=== PATIENT | male | born 1955 | race Caucasian/White ===

== ENCOUNTER 2017-05-04 11:52 | Emergency (ER) | payer MEDICARE, MEDICAID | END 2017-05-04 14:43 | disposition home or self-care (01) | LOC: M ED 11:52 | DX: J20.9 Acute bronchitis, unspecified (principal); F17.210 Nicotine dependence, cigarettes, uncomplicated; Z90.5 Acquired absence of kidney; Z88.0 Allergy status to penicillin | CPT/HCPCS: 99283 ==

== ENCOUNTER → 2019-12-21 | Outpatient (REF) | payer MEDICARE, MEDICAID ==
[~2019-12-21] MED LIST: ZITHTAB PO
[2019-12-21 13:13] LABS: BASO % 0.4 % (0.0-1.0); EOS % 0.4 % (0.0-3.0); HEMATOCRIT 40.3 % (42.0-52.0); LYMPH # 1.1 10^3/uL (1.5-5.0); MEAN CORPUSCULAR HEMOGLOBIN 36.4 pg (27.0-33.0); MEAN CORPUSCULAR HGB CONC 32.3 g/dl (32.0-36.5); MEAN CORPUSCULAR VOLUME 112.9 fl (80.0-96.0); MONO # 0.7 10^3/uL (0.0-0.8); NEUTROPHILS # 4.9 10^3/uL (1.5-8.5); NEUTROPHILS % 72.9 % (36.0-66.0); PLATELET COUNT, AUTOMATED 222 10^3/uL (150-450); RED BLOOD COUNT 3.57 10^6/uL (4.30-6.10); WHITE BLOOD COUNT 6.7 10^3/uL (4.0-10.0)
[2019-12-21 13:25] LABS: ALT/SGPT 31 U/L (12-78); BILIRUBIN,TOTAL 0.9 MG/DL (0.2-1.0); BLOOD UREA NITROGEN 9 MG/DL (7-18); CALCIUM LEVEL 9.2 MG/DL (8.8-10.2); CARBON DIOXIDE LEVEL 29 MEQ/L (21-32); CHLORIDE LEVEL 104 MEQ/L (98-107); CHOLESTEROL LEVEL 175 MG/DL (<200); CHOLESTEROL RISK RATIO 1.767 (<5); CREATININE FOR GFR 0.77 MG/DL (0.70-1.30); GLOMERULAR FILTRATION RATE > 60.0 (>49); GLUCOSE, FASTING 88 MG/DL (70-100); HDL CHOLESTEROL 99 MG/DL (>40); IRON (FE) 26 UG/DL (65-175); LDL CHOLESTEROL 64 MG/DL (<100); NON-HDL-C 76 MG/DL; POTASSIUM SERUM 4.4 MEQ/L (3.5-5.1); SODIUM LEVEL 136 MEQ/L (136-145); TOTAL PROTEIN 7.4 GM/DL (6.4-8.2); TRIGLYCERIDES LEVEL 58 MG/DL (<150)
== END ==
LOC: M LAB REF 12:46
PROVIDERS: ATTEND Physician Assistant
DX: R53.83 Other fatigue (principal); R63.4 Abnormal weight loss; Z79.899 Other long term (current) drug therapy

== ENCOUNTER → 2020-02-17 | Outpatient (REF) | payer MEDICARE, MEDICAID ==
[2020-02-17 13:50] LABS: BASO % 0.6 % (0.0-1.0); EOS # 0.1 10^3/uL (0.0-0.5); EOS % 1.4 % (0.0-3.0); HEMATOCRIT 38.2 % (42.0-52.0); HEMOGLOBIN 12.2 g/dl (13.5-17.5); LYMPH # 1.4 10^3/uL (1.5-5.0); LYMPH % 21.9 % (24.0-44.0); MEAN CORPUSCULAR HEMOGLOBIN 35.9 pg (27.0-33.0); MEAN CORPUSCULAR HGB CONC 31.9 g/dl (32.0-36.5); MEAN CORPUSCULAR VOLUME 112.4 fl (80.0-96.0); MONO # 0.9 10^3/uL (0.0-0.8); MONO % 14.3 % (0.0-5.0); NEUTROPHILS # 3.9 10^3/uL (1.5-8.5); NEUTROPHILS % 61.3 % (36.0-66.0); PLATELET COUNT, AUTOMATED 220 10^3/uL (150-450); WHITE BLOOD COUNT 6.3 10^3/uL (4.0-10.0)
[2020-02-17 14:20] LABS: PERCENT SATURATION 21.7 % (19.7-50.0)
[2020-02-17 14:21] LABS: FOLATE 18.9 NG/ML
== END ==
LOC: M LAB REF 12:25
PROVIDERS: ATTEND Physician Assistant
DX: D64.9 Anemia, unspecified (principal)

== ENCOUNTER 2023-04-07 09:10 | Emergency (ER) | payer MEDICARE, MEDICAID ==
[~2023-04-07] VITALS: Ht 172.7 cm; Wt 50.0 kg
[2023-04-07 09:11] VITALS: BP 133/80; TEMP 96; O2SAT 98
[2023-04-07] MEDS ORDERED: FLON27.5 NARES (11:39)
[2023-04-07] MEDS ORDERED: PSEU-52 PO (11:39)
== END 2023-04-07 11:45 | disposition home or self-care (01) ==
LOC: M ED 09:10
DX: J09.X2 Influenza due to identified novel influenza A virus with other respiratory manifestations (principal); B34.8 Other viral infections of unspecified site; B34.1 Enterovirus infection, unspecified; Z79.899 Other long term (current) drug therapy

== ENCOUNTER → 2024-04-12 | Outpatient (CLI) | payer MEDICARE, MEDICAID ==
[~2024-04-12] MED LIST changes: +FLON27.5 NARES; +PSEU-52 PO
== END ==
LOC: M LAB 10:35 → M RAD 10:35
PROVIDERS: ATTEND Nurse Practitioner Adult Health
DX: Z00.8 Encounter for other general examination (principal); F17.211 Nicotine dependence, cigarettes, in remission; M79.671 Pain in right foot; J44.9 Chronic obstructive pulmonary disease, unspecified

== ENCOUNTER 2024-05-17 07:41 | Emergency (ER) | payer MEDICARE, MEDICAID ==
[~2024-05-17] VITALS: Ht 172.7 cm; Wt 55.5 kg
[2024-05-17 08:40] LABS: BASO % 0.1 % (0.0-1.0); EOS % 0.2 % (0.0-3.0); HEMATOCRIT 42.5 % (42.0-52.0); HEMOGLOBIN 13.8 g/dl (13.5-17.5); LYMPH # 0.7 10^3/uL (1.5-5.0); LYMPH % 6.8 % (24.0-44.0); MEAN CORPUSCULAR HEMOGLOBIN 35.7 pg (27.0-33.0); MEAN CORPUSCULAR HGB CONC 32.5 g/dl (32.0-36.5); MEAN CORPUSCULAR VOLUME 109.8 fl (80.0-96.0); MONO # 1.3 10^3/uL (0.0-0.8); NEUTROPHILS # 8.6 10^3/uL (1.5-8.5); NEUTROPHILS % 80.5 % (36.0-66.0); PLATELET COUNT, AUTOMATED 155 10^3/uL (150-450); RED BLOOD COUNT 3.87 10^6/uL (4.30-6.10); WHITE BLOOD COUNT 10.7 10^3/uL (4.0-10.0)
[2024-05-17 08:48] LABS: ERYTHROCYTE SEDIMENTATION RATE 16 mm/hr (0-20)
[2024-05-17 09:16] LABS: URIC ACID 5.7 MG/DL (3.7-9.2)
[2024-05-17 09:19] LABS: ALBUMIN 4.4 G/DL (3.2-5.2); ALKALINE PHOSPHATASE 54 U/L (40-129); ALT/SGPT 19 U/L (7.0-40); AST/SGOT 23 U/L (<34); BILIRUBIN,TOTAL 1.5 MG/DL (0.3-1.2); BLOOD UREA NITROGEN 12 MG/DL (9-23); C REACTIVE PROTEIN QUANTITATIV < 0.50 MG/DL (<1.0); CALCIUM LEVEL 9.6 MG/DL (8.3-10.6); CARBON DIOXIDE LEVEL 27 MMOL/L (20-31); CHLORIDE LEVEL 103 MMOL/L (98-107); CREATININE FOR GFR 0.66 MG/DL (0.70-1.30); GLOMERULAR FILTRATION RATE > 60.0 (>49); GLUCOSE, FASTING 105 MG/DL (74-106); POTASSIUM SERUM 4.2 MMOL/L (3.5-5.1); SODIUM LEVEL 138 MMOL/L (136-145); TOTAL PROTEIN 7.7 G/DL (5.7-8.2)
[2024-05-17] MEDS ORDERED: KETOROLAC 30 MG/ML 1ML VIAL IV ONE (09:50)
[2024-05-17] MEDS: KETOROLAC 30 MG/ML 1ML VIAL IV ONE (11:09)
[2024-05-17] MEDS ORDERED: INDO50CA91 PO (11:14)
[2024-05-17 11:44] VITALS: BP 158/83; TEMP 97.9; O2SAT 100
== END 2024-05-17 11:46 | disposition home or self-care (01) ==
LOC: M ED 07:41
DX: M10.062 Idiopathic gout, left knee (principal); Z79.899 Other long term (current) drug therapy; Z88.0 Allergy status to penicillin
CPT/HCPCS: 73564; 80053; 83605; 84550; 85025; 85652; 86140; 96374; 99284; J1885

== ENCOUNTER 2024-06-03 08:38 | Inpatient (IN) | payer MEDICARE, MEDICAID ==
[~2024-06-03] VITALS: Ht 172.7 cm; Wt 51.4 kg
[~2024-06-03 08:38] MED LIST changes: +INDO50CA91 PO
[2024-06-03] MEDS: KETOROLAC 30 MG/ML 1ML VIAL IV ONE (11:43)
[2024-06-03 11:49] LABS: BASO % 0.3 % (0.0-1.0); EOS # 0.1 10^3/uL (0.0-0.5); EOS % 0.6 % (0.0-3.0); HEMATOCRIT 42.4 % (42.0-52.0); HEMOGLOBIN 13.4 g/dl (13.5-17.5); LYMPH # 1.3 10^3/uL (1.5-5.0); LYMPH % 10.3 % (24.0-44.0); MEAN CORPUSCULAR HEMOGLOBIN 34.2 pg (27.0-33.0); MEAN CORPUSCULAR HGB CONC 31.6 g/dl (32.0-36.5); MEAN CORPUSCULAR VOLUME 108.2 fl (80.0-96.0); MONO # 1.4 10^3/uL (0.0-0.8); NEUTROPHILS # 9.8 10^3/uL (1.5-8.5); NEUTROPHILS % 77.2 % (36.0-66.0); PLATELET COUNT, AUTOMATED 405 10^3/uL (150-450); RED BLOOD COUNT 3.92 10^6/uL (4.30-6.10); WHITE BLOOD COUNT 12.7 10^3/uL (4.0-10.0)
[2024-06-03 11:52] LABS: APPEARANCE, URINE CLEAR (CLEAR); BACTERIA, URINE AUTO NEGATIVE (NEGATIVE); BILIRUBIN, URINE AUTO NEGATIVE (NEGATIVE); BLOOD, URINE BLOOD NEGATIVE (NEGATIVE); COLOR, URINE YELLOW (YELLOW); GLUCOSE, URINE (UA) AUTO NEGATIVE (NEGATIVE); KETONE, URINE AUTO NEGATIVE (NEGATIVE); LEUKOCYTE ESTERASE, URINE AUTO NEGATIVE (NEGATIVE); MUCUS, URINE SMALL (NEGATIVE); NITRITE, URINE AUTO NEGATIVE (NEGATIVE); PROTEIN, URINE AUTO NEGATIVE (NEGATIVE); RBC, URINE AUTO 1 /HPF (0-3); SPECIFIC GRAVITY URINE AUTO 1.012 (1.002-1.035); SQUAMOUS EPITHELIAL CELL UR AU 0 /HPF (0-6); WBC, URINE AUTO 1 /HPF (0-3)
[2024-06-03 11:54] LABS: ERYTHROCYTE SEDIMENTATION RATE 87 mm/hr (0-20)
[2024-06-03 12:15] LABS: URIC ACID 4.4 MG/DL (3.7-9.2)
[2024-06-03 12:19] LABS: ALKALINE PHOSPHATASE 70 U/L (40-129); ALT/SGPT 24 U/L (7.0-40); AST/SGOT 19 U/L (<34); BILIRUBIN,DIRECT 0.3 MG/DL (<0.4); BILIRUBIN,TOTAL 1.1 MG/DL (0.3-1.2); BLOOD UREA NITROGEN 18 MG/DL (9-23); C REACTIVE PROTEIN QUANTITATIV 2.53 MG/DL (<1.0); CALCIUM LEVEL 9.7 MG/DL (8.3-10.6); CARBON DIOXIDE LEVEL 26 MMOL/L (20-31); CHLORIDE LEVEL 103 MMOL/L (98-107); GLOMERULAR FILTRATION RATE > 60.0 (>49); GLUCOSE, FASTING 94 MG/DL (74-106); POTASSIUM SERUM 4.6 MMOL/L (3.5-5.1); SODIUM LEVEL 138 MMOL/L (136-145); TOTAL PROTEIN 8.4 G/DL (5.7-8.2)
[2024-06-03 12:27] LABS: PROCALCITONIN 0.17 ng/ml
[2024-06-03 12:28] LABS: PARTIAL THROMBOPLASTIN TIME 30.2 SECONDS (24.8-34.2); PROTHROMBIN TIME 13.5 SECONDS (12.5-14.5)
[2024-06-03] MEDS ORDERED: GENTAMICIN 100 MG in D5W 50 ML IV SCH (13:15)
[2024-06-03] MEDS ORDERED: CLIN150C17 PO (13:56)
[2024-06-03] MEDS ORDERED: HOME MED LIST COMPLETE! XX SCH (14:00)
[2024-06-03] MEDS: ceFAZolin SODIUM 2 GM in DEXTROSE 5% (D5W) ADV/MINI-BAG 50 ML IV SCH (15:41)
[2024-06-03] MEDS ORDERED: PERCOCET 5MG/325MG TAB PO PRN (16:25)
[2024-06-03] MEDS: KETOROLAC 30 MG/ML 1ML VIAL IV SCH (17:45)
[2024-06-03] MEDS: ACETAMINOPHEN 500 MG TAB PO SCH (17:45)
[2024-06-03] MEDS: VANCOMYCIN HCL 1,250 MG, VIAL MATE ADAPTER 1 EACH in NS 250 ML IV ONE (20:15)
[2024-06-03 22:00] VITALS: BP 168/93; TEMP 97.5; O2SAT 97
[2024-06-04] MEDS: VANCOMYCIN HCL 1,000 MG, VIAL MATE ADAPTER 1 EACH in NS 250 ML IV SCH (04:26)
[2024-06-04 04:29] VITALS: BP 124/77; TEMP 97.5; O2SAT 98
[2024-06-04 06:55] LABS: BASO % 0.5 % (0.0-1.0); EOS # 0.1 10^3/uL (0.0-0.5); EOS % 1.6 % (0.0-3.0); HEMATOCRIT 36.4 % (42.0-52.0); HEMOGLOBIN 11.5 g/dl (13.5-17.5); LYMPH # 0.9 10^3/uL (1.5-5.0); LYMPH % 11.4 % (24.0-44.0); MEAN CORPUSCULAR HEMOGLOBIN 33.9 pg (27.0-33.0); MEAN CORPUSCULAR HGB CONC 31.6 g/dl (32.0-36.5); MEAN CORPUSCULAR VOLUME 107.4 fl (80.0-96.0); NEUTROPHILS % 74.1 % (36.0-66.0); PLATELET COUNT, AUTOMATED 366 10^3/uL (150-450); RED BLOOD COUNT 3.39 10^6/uL (4.30-6.10); WHITE BLOOD COUNT 8.1 10^3/uL (4.0-10.0)
[2024-06-04 07:17] LABS: C REACTIVE PROTEIN QUANTITATIV 1.92 MG/DL (<1.0)
[2024-06-04 07:21] LABS: BLOOD UREA NITROGEN 22 MG/DL (9-23); CALCIUM LEVEL 8.6 MG/DL (8.3-10.6); CARBON DIOXIDE LEVEL 28 MMOL/L (20-31); CHLORIDE LEVEL 106 MMOL/L (98-107); CREATININE FOR GFR 0.74 MG/DL (0.70-1.30); GLOMERULAR FILTRATION RATE > 60.0 (>49); GLUCOSE, FASTING 108 MG/DL (74-106); POTASSIUM SERUM 4.3 MMOL/L (3.5-5.1); SODIUM LEVEL 139 MMOL/L (136-145)
[2024-06-04 12:00] VITALS: BP 123/77; TEMP 97.9; O2SAT 100
[2024-06-04] MEDS: LIDOCAINE 5% (LIDODERM) PATCH TD SCH (13:49)
[2024-06-04 19:21] VITALS: BP 130/76; TEMP 97.7; O2SAT 97
[2024-06-05 03:50] VITALS: BP 127/76; TEMP 97.5; O2SAT 99
[2024-06-05 06:21] LABS: BASO # 0.1 10^3/uL (0.0-0.2); BASO % 0.7 % (0.0-1.0); EOS # 0.2 10^3/uL (0.0-0.5); EOS % 2.4 % (0.0-3.0); HEMATOCRIT 34.2 % (42.0-52.0); HEMOGLOBIN 10.7 g/dl (13.5-17.5); LYMPH # 1.1 10^3/uL (1.5-5.0); LYMPH % 13.1 % (24.0-44.0); MEAN CORPUSCULAR HEMOGLOBIN 33.3 pg (27.0-33.0); MEAN CORPUSCULAR HGB CONC 31.3 g/dl (32.0-36.5); MEAN CORPUSCULAR VOLUME 106.5 fl (80.0-96.0); MONO % 12.1 % (2.0-8.0); NEUTROPHILS # 5.7 10^3/uL (1.5-8.5); NEUTROPHILS % 71.1 % (36.0-66.0); PLATELET COUNT, AUTOMATED 356 10^3/uL (150-450); RED BLOOD COUNT 3.21 10^6/uL (4.30-6.10)
[2024-06-05] MEDS: PERCOCET 5MG/325MG TAB PO PRN (06:43)
[2024-06-05 06:55] LABS: BLOOD UREA NITROGEN 15 MG/DL (9-23); CALCIUM LEVEL 8.3 MG/DL (8.3-10.6); CARBON DIOXIDE LEVEL 26 MMOL/L (20-31); CHLORIDE LEVEL 107 MMOL/L (98-107); GLOMERULAR FILTRATION RATE > 60.0 (>49); GLUCOSE, FASTING 106 MG/DL (74-106); POTASSIUM SERUM 4.7 MMOL/L (3.5-5.1); SODIUM LEVEL 141 MMOL/L (136-145)
[2024-06-05 12:00] VITALS: BP 132/78; TEMP 97.9; O2SAT 100
[2024-06-05 19:36] VITALS: BP 127/78; TEMP 98.1; O2SAT 99
[2024-06-06 03:53] VITALS: BP 124/77; TEMP 97.7; O2SAT 98
[2024-06-06 07:11] LABS: BASO # 0.1 10^3/uL (0.0-0.2); BASO % 0.7 % (0.0-1.0); EOS # 0.2 10^3/uL (0.0-0.5); EOS % 1.9 % (0.0-3.0); HEMATOCRIT 33.3 % (42.0-52.0); HEMOGLOBIN 10.4 g/dl (13.5-17.5); LYMPH # 1.3 10^3/uL (1.5-5.0); MEAN CORPUSCULAR HEMOGLOBIN 33.1 pg (27.0-33.0); MEAN CORPUSCULAR HGB CONC 31.2 g/dl (32.0-36.5); MEAN CORPUSCULAR VOLUME 106.1 fl (80.0-96.0); MONO # 0.9 10^3/uL (0.0-0.8); MONO % 10.6 % (2.0-8.0); NEUTROPHILS # 6.1 10^3/uL (1.5-8.5); PLATELET COUNT, AUTOMATED 340 10^3/uL (150-450); RED BLOOD COUNT 3.14 10^6/uL (4.30-6.10); WHITE BLOOD COUNT 8.6 10^3/uL (4.0-10.0)
[2024-06-06 07:40] LABS: BLOOD UREA NITROGEN 17 MG/DL (9-23); CALCIUM LEVEL 8.4 MG/DL (8.3-10.6); CARBON DIOXIDE LEVEL 27 MMOL/L (20-31); CHLORIDE LEVEL 104 MMOL/L (98-107); GLOMERULAR FILTRATION RATE > 60.0 (>49); GLUCOSE, FASTING 97 MG/DL (74-106); POTASSIUM SERUM 4.7 MMOL/L (3.5-5.1); SODIUM LEVEL 140 MMOL/L (136-145)
[2024-06-06 09:00] VITALS: BP 146/82; TEMP 97.2; O2SAT 99
[2024-06-06 19:27] VITALS: BP 144/82; TEMP 97.7; O2SAT 97
[2024-06-07] VITALS (10 sets, daily range): BP systolic 140–158; BP diastolic 76–81; TEMP 96.8–98.2; O2SAT 96–99
[2024-06-07 07:09] LABS: BASO # 0.1 10^3/uL (0.0-0.2); BASO % 0.6 % (0.0-1.0); EOS # 0.2 10^3/uL (0.0-0.5); EOS % 1.6 % (0.0-3.0); HEMATOCRIT 33.3 % (42.0-52.0); HEMOGLOBIN 10.5 g/dl (13.5-17.5); LYMPH # 1.4 10^3/uL (1.5-5.0); LYMPH % 14.8 % (24.0-44.0); MEAN CORPUSCULAR HEMOGLOBIN 33.4 pg (27.0-33.0); MEAN CORPUSCULAR HGB CONC 31.5 g/dl (32.0-36.5); MEAN CORPUSCULAR VOLUME 106.1 fl (80.0-96.0); MONO % 9.8 % (2.0-8.0); NEUTROPHILS % 72.3 % (36.0-66.0); PLATELET COUNT, AUTOMATED 356 10^3/uL (150-450); RED BLOOD COUNT 3.14 10^6/uL (4.30-6.10); WHITE BLOOD COUNT 9.7 10^3/uL (4.0-10.0)
[2024-06-07 07:44] LABS: BLOOD UREA NITROGEN 18 MG/DL (9-23); CALCIUM LEVEL 8.3 MG/DL (8.3-10.6); CARBON DIOXIDE LEVEL 27 MMOL/L (20-31); CHLORIDE LEVEL 107 MMOL/L (98-107); GLOMERULAR FILTRATION RATE > 60.0 (>49); GLUCOSE, FASTING 87 MG/DL (74-106); POTASSIUM SERUM 4.5 MMOL/L (3.5-5.1); SODIUM LEVEL 139 MMOL/L (136-145)
[2024-06-07] MEDS: LIDOCAINE 1% SDV 30ML VIAL As Ordered ONE (09:09)
[2024-06-07] MEDS ORDERED: MIDAZOLAM INJ 2MG/2ML VIAL As Ordered ONE (09:15)
[2024-06-07] MEDS ORDERED: fentaNYL 100 MCG/2 ML INJECTION As Ordered ONE (09:15)
[2024-06-07] MEDS ORDERED: propofoL 200 MG/20 ML VIAL As Ordered ONE (09:16)
[2024-06-07] MEDS ORDERED: LIDOCAINE 2% 100MG/5ML SDV (FOR ANES.) As Ordered ONE (09:17)
[2024-06-07] MEDS ORDERED: ONDANSETRON 4MG 2ML VIAL As Ordered ONE (09:17)
[2024-06-07] MEDS ORDERED: ACETAMINOPHEN 1000MG/100ML IV BAG As Ordered ONE (09:18)
[2024-06-07] MEDS: ceFAZolin 1GM VIAL As Ordered ONE (09:55)
[2024-06-07] MEDS ORDERED: ONDANSETRON 4MG 2ML VIAL IV PRN (11:00)
[2024-06-07] MEDS ORDERED: oxyCODONE 5MG TAB PO PRN (11:00)
[2024-06-07] MEDS ORDERED: HYDROMORPHONE HCL 0.5 MG/ 0.5 ML SYRINGE IV PRN (11:00)
[2024-06-07] MEDS ORDERED: fentaNYL 100 MCG/2 ML INJECTION IV PRN (11:00)
[2024-06-07] MEDS: LR 1,000 ML IV SCH (11:00)
[2024-06-08 04:40] VITALS: BP 118/58; TEMP 97.7; O2SAT 96
[2024-06-08 06:10] LABS: BASO # 0.1 10^3/uL (0.0-0.2); BASO % 0.4 % (0.0-1.0); EOS # 0.1 10^3/uL (0.0-0.5); EOS % 1.1 % (0.0-3.0); HEMATOCRIT 29.5 % (42.0-52.0); HEMOGLOBIN 9.3 g/dl (13.5-17.5); LYMPH # 1.6 10^3/uL (1.5-5.0); LYMPH % 14.1 % (24.0-44.0); MEAN CORPUSCULAR HEMOGLOBIN 33.5 pg (27.0-33.0); MEAN CORPUSCULAR HGB CONC 31.5 g/dl (32.0-36.5); MEAN CORPUSCULAR VOLUME 106.1 fl (80.0-96.0); MONO # 1.3 10^3/uL (0.0-0.8); MONO % 11.3 % (2.0-8.0); NEUTROPHILS # 8.2 10^3/uL (1.5-8.5); NEUTROPHILS % 72.4 % (36.0-66.0); PLATELET COUNT, AUTOMATED 314 10^3/uL (150-450); RED BLOOD COUNT 2.78 10^6/uL (4.30-6.10); WHITE BLOOD COUNT 11.4 10^3/uL (4.0-10.0)
[2024-06-08 06:33] LABS: BLOOD UREA NITROGEN 18 MG/DL (9-23); CALCIUM LEVEL 8.1 MG/DL (8.3-10.6); CARBON DIOXIDE LEVEL 27 MMOL/L (20-31); CHLORIDE LEVEL 107 MMOL/L (98-107); CREATININE FOR GFR 0.73 MG/DL (0.70-1.30); GLOMERULAR FILTRATION RATE > 60.0 (>49); GLUCOSE, FASTING 91 MG/DL (74-106); POTASSIUM SERUM 3.9 MMOL/L (3.5-5.1); SODIUM LEVEL 140 MMOL/L (136-145)
[2024-06-08 07:57] VITALS: BP_SYST 126; BP_DIAS 64; BP_DIAS 71; TEMP 98.8; O2SAT 97; O2SAT 99
[2024-06-08 12:00] VITALS: BP 128/77; TEMP 97.9; O2SAT 97
[2024-06-08 19:48] VITALS: BP 152/79; TEMP 98.2; O2SAT 98
[2024-06-09 04:00] VITALS: BP 150/79; TEMP 97.7; O2SAT 98
[2024-06-09 07:35] LABS: BASO # 0.1 10^3/uL (0.0-0.2); BASO % 0.7 % (0.0-1.0); EOS # 0.1 10^3/uL (0.0-0.5); EOS % 1.4 % (0.0-3.0); HEMATOCRIT 32.5 % (42.0-52.0); LYMPH # 1.2 10^3/uL (1.5-5.0); LYMPH % 11.9 % (24.0-44.0); MEAN CORPUSCULAR HGB CONC 30.8 g/dl (32.0-36.5); MEAN CORPUSCULAR VOLUME 107.3 fl (80.0-96.0); MONO # 1.4 10^3/uL (0.0-0.8); MONO % 13.4 % (2.0-8.0); NEUTROPHILS # 7.4 10^3/uL (1.5-8.5); NEUTROPHILS % 71.4 % (36.0-66.0); PLATELET COUNT, AUTOMATED 341 10^3/uL (150-450); RED BLOOD COUNT 3.03 10^6/uL (4.30-6.10); WHITE BLOOD COUNT 10.4 10^3/uL (4.0-10.0)
[2024-06-09 07:56] LABS: BLOOD UREA NITROGEN 13 MG/DL (9-23); CALCIUM LEVEL 8.7 MG/DL (8.3-10.6); CARBON DIOXIDE LEVEL 27 MMOL/L (20-31); CHLORIDE LEVEL 107 MMOL/L (98-107); CREATININE FOR GFR 0.63 MG/DL (0.70-1.30); GLOMERULAR FILTRATION RATE > 60.0 (>49); GLUCOSE, FASTING 94 MG/DL (74-106); POTASSIUM SERUM 4.1 MMOL/L (3.5-5.1); SODIUM LEVEL 142 MMOL/L (136-145)
[2024-06-09 12:00] VITALS: BP 151/80; TEMP 97.4; O2SAT 100
[2024-06-09 21:04] VITALS: BP 134/76; TEMP 98.1; O2SAT 96
[2024-06-10 05:25] VITALS: BP 134/77; TEMP 97.3; O2SAT 95
[2024-06-10 06:10] LABS: BASO # 0.1 10^3/uL (0.0-0.2); EOS # 0.2 10^3/uL (0.0-0.5); EOS % 2.2 % (0.0-3.0); HEMATOCRIT 32.4 % (42.0-52.0); HEMOGLOBIN 10.3 g/dl (13.5-17.5); LYMPH # 1.5 10^3/uL (1.5-5.0); LYMPH % 15.4 % (24.0-44.0); MEAN CORPUSCULAR HEMOGLOBIN 32.9 pg (27.0-33.0); MEAN CORPUSCULAR HGB CONC 31.8 g/dl (32.0-36.5); MEAN CORPUSCULAR VOLUME 103.5 fl (80.0-96.0); MONO # 1.3 10^3/uL (0.0-0.8); MONO % 13.6 % (2.0-8.0); NEUTROPHILS # 6.4 10^3/uL (1.5-8.5); NEUTROPHILS % 66.1 % (36.0-66.0); PLATELET COUNT, AUTOMATED 346 10^3/uL (150-450); RED BLOOD COUNT 3.13 10^6/uL (4.30-6.10); WHITE BLOOD COUNT 9.7 10^3/uL (4.0-10.0)
[2024-06-10 06:26] LABS: BLOOD UREA NITROGEN 12 MG/DL (9-23); CALCIUM LEVEL 8.8 MG/DL (8.3-10.6); CARBON DIOXIDE LEVEL 26 MMOL/L (20-31); CHLORIDE LEVEL 107 MMOL/L (98-107); GLOMERULAR FILTRATION RATE > 60.0 (>49); GLUCOSE, FASTING 96 MG/DL (74-106); POTASSIUM SERUM 4.2 MMOL/L (3.5-5.1); SODIUM LEVEL 141 MMOL/L (136-145)
[2024-06-10 13:00] VITALS: BP 138/80; TEMP 97.7; O2SAT 98
[2024-06-10] MEDS: CEPHALEXIN 500 MG CAP PO SCH (14:07)
[2024-06-10 19:43] VITALS: BP 135/81; TEMP 98.1; O2SAT 98
[2024-06-11 03:59] VITALS: BP 110/67; TEMP 97.5; O2SAT 97
[2024-06-11 04:00] VITALS: BP 110/67; TEMP 97.5; O2SAT 97
[2024-06-11 07:10] LABS: BASO # 0.1 10^3/uL (0.0-0.2); BASO % 0.7 % (0.0-1.0); EOS # 0.2 10^3/uL (0.0-0.5); HEMATOCRIT 36.5 % (42.0-52.0); HEMOGLOBIN 11.3 g/dl (13.5-17.5); LYMPH # 1.6 10^3/uL (1.5-5.0); MEAN CORPUSCULAR HEMOGLOBIN 32.8 pg (27.0-33.0); MEAN CORPUSCULAR VOLUME 105.8 fl (80.0-96.0); MONO # 1.2 10^3/uL (0.0-0.8); MONO % 12.8 % (2.0-8.0); NEUTROPHILS # 6.3 10^3/uL (1.5-8.5); NEUTROPHILS % 65.9 % (36.0-66.0); PLATELET COUNT, AUTOMATED 429 10^3/uL (150-450); RED BLOOD COUNT 3.45 10^6/uL (4.30-6.10); WHITE BLOOD COUNT 9.6 10^3/uL (4.0-10.0)
[2024-06-11 07:47] LABS: BLOOD UREA NITROGEN 14 MG/DL (9-23); C REACTIVE PROTEIN QUANTITATIV < 0.50 MG/DL (<1.0); CALCIUM LEVEL 9.1 MG/DL (8.3-10.6); CARBON DIOXIDE LEVEL 28 MMOL/L (20-31); CHLORIDE LEVEL 103 MMOL/L (98-107); CREATININE FOR GFR 0.62 MG/DL (0.70-1.30); GLOMERULAR FILTRATION RATE > 60.0 (>49); GLUCOSE, FASTING 87 MG/DL (74-106); POTASSIUM SERUM 4.4 MMOL/L (3.5-5.1); SODIUM LEVEL 139 MMOL/L (136-145)
[2024-06-11] MEDS ORDERED: PROBCAP14 PO (10:00)
[2024-06-11] MEDS ORDERED: CEPH500C PO (10:00)
== END 2024-06-11 11:45 | disposition home or self-care (01) | DRG 502 ==
LOC: M ED 08:38 → M ED INP 16:41 → M MS5PR 22:00
PROVIDERS: ADMIT Internal Medicine Nephrology; ATTEND Student in an Organized Health Care Education/Training Program
PROC: 0MBP0ZZ Excision of Left Knee Bursa and Ligament, Open Approach (ICD-10-PCS; principal; 2024-06-07 10:00)
DX: M70.42 Prepatellar bursitis, left knee (principal); B95.61 Methicillin susceptible Staphylococcus aureus infection as the cause of diseases classified elsewhere; Z88.0 Allergy status to penicillin; Z79.899 Other long term (current) drug therapy

== ENCOUNTER 2024-10-30 21:14 | Emergency (ER) | payer MEDICARE, MEDICAID ==
[~2024-10-30] VITALS: Ht 172.7 cm; Wt 52.2 kg
[~2024-10-30 21:14] MED LIST changes: +CEPH500C PO; +CLIN150C17 PO; +PROBCAP14 PO
[2024-10-30 21:32] VITALS: TEMP 97.1
[2024-10-30 21:41] LABS: BASO # 0.0 10^3/uL (0.0-0.2); BASO % 0.7 % (0.0-1.0); EOS # 0.2 10^3/uL (0.0-0.5); EOS % 2.7 % (0.0-3.0); LYMPH # 1.9 10^3/uL (1.5-5.0); LYMPH % 34.3 % (24.0-44.0); MONO # 0.7 10^3/uL (0.0-0.8); MONO % 11.8 % (2.0-8.0); NEUTROPHILS # 2.9 10^3/uL (1.5-8.5); NEUTROPHILS % 50.3 % (36.0-66.0); PLATELET COUNT, AUTOMATED 194 10^3/uL (150-450)
[2024-10-30 21:53] LABS: APPEARANCE, URINE CLEAR (CLEAR); BACTERIA, URINE AUTO NEGATIVE (NEGATIVE); BILIRUBIN, URINE AUTO NEGATIVE (NEGATIVE); BLOOD, URINE BLOOD NEGATIVE (NEGATIVE); GLUCOSE, URINE (UA) AUTO NEGATIVE (NEGATIVE); KETONE, URINE AUTO NEGATIVE (NEGATIVE); LEUKOCYTE ESTERASE, URINE AUTO NEGATIVE (NEGATIVE); NITRITE, URINE AUTO NEGATIVE (NEGATIVE); PROTEIN, URINE AUTO NEGATIVE (NEGATIVE); RBC, URINE AUTO 0 /HPF (0-3); SPECIFIC GRAVITY URINE AUTO 1.002 (1.002-1.035); SQUAMOUS EPITHELIAL CELL UR AU 0 /HPF (0-6); UROBILINOGEN, URINE AUTO 0.2 mg/dL (0.0-2.0); WBC, URINE AUTO 0 /HPF (0-3)
[2024-10-30 21:55] LABS: INR 0.88
[2024-10-30 22:11] LABS: ALT/SGPT 22 U/L (7.0-40); AST/SGOT 33 U/L (<34); CALCIUM LEVEL 8.7 MG/DL (8.3-10.6); CARBON DIOXIDE LEVEL 24 MMOL/L (20-31); CHLORIDE LEVEL 101 MMOL/L (98-107); CK-MB VALUE MASS 2.8 NG/ML (<3.6); CPK CREATINE PHOSPHOKINASE 80 U/L (46-171); CREATININE FOR GFR 0.78 MG/DL (0.70-1.30); GLOMERULAR FILTRATION RATE > 90.0 (>49); MB/CK RELATIVE INDEX 3.50 (< OR =4); POTASSIUM SERUM 4.2 MMOL/L (3.5-5.1); SODIUM LEVEL 140 MMOL/L (136-145)
[2024-10-30] MEDS: NS (Normal Saline) 0.9% 1,000 ML IV ONE (23:00)
[2024-10-30] MEDS: ACETAMINOPHEN *IV* 1,000 MG in IV 1 EA IV ONE (23:01)
[2024-10-30 23:24] LABS: CK-MB VALUE MASS 2.6 NG/ML (<3.6); MAGNESIUM LEVEL 2.0 MG/DL (1.8-2.4)
[2024-10-30 23:26] LABS: CPK CREATINE PHOSPHOKINASE 68.0 U/L (46-171); MB/CK RELATIVE INDEX 3.82 (< OR =4)
[2024-10-31] MEDS ORDERED: ISOVUE-370 76% 100 ML VIAL As Ordered ONE (01:26)
[2024-10-31 02:30] VITALS: BP 164/81; O2SAT 98
== END 2024-10-31 02:57 | disposition home or self-care (01) ==
LOC: M ED 21:14 → EDBD 21:14 → M ED 10-31 02:57
DX: R07.9 Chest pain, unspecified (principal); R06.02 Shortness of breath; K57.30 Diverticulosis of large intestine without perforation or abscess without bleeding; F10.10 Alcohol abuse, uncomplicated; Z87.891 Personal history of nicotine dependence; Z88.0 Allergy status to penicillin; Z79.2 Long term (current) use of antibiotics; Z79.899 Other long term (current) drug therapy
CPT/HCPCS: 71045; 71250; 73564; 74177; 80053; 81001; 82248; 82550; 82553; 83690; 83735; 84484; 85025; 85610; 87486; 87581; 87633; 87798; 93005; 93041; 93971; 94760; 96365; 99285; J0131; Q9967